=== PATIENT | female | born 1960 | race Caucasian/White ===

== ENCOUNTER 2016-06-01 12:45 | Emergency (ER) | payer OTHER ==
[~2016-06-01] VITALS: Ht 167.6 cm; Wt 65.0 kg
[2016-06-01 12:45] VITALS: Ht 167.6 cm; Wt 65.0 kg
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
--- NOTE | 2016-06-01 13:46 | RADRPT ---
PROCEDURE: CT cervical spine without contrast CLINICAL INDICATION: Neck pain. TECHNIQUE: CT scan of the cervical spine [facility] No IV contrast was administered. Coronal and sagittal reformatted images were obtained from th e axial source images. Images were reviewed on a high-resolution PACS workstation. One or more the f ollowing does reduction techniques were utilized: Automated exposure control, adjustment of the mA/ or kV according to patient's size, or use of iterative reconstruction technique. Exam CTDI = 22.18 m Gy and the DLP = 455.84 mGy-cm. COMPARISON: None available. FINDINGS: There is straightening of the alignment of the cervical spine with loss of the normal cervical lordo sis. There is 2 mm anterolisthesis of C3 on C4 and C4 on C5. No acute fracture or dislocation is s een. The vertebral body heights are preserved. No mass, hematoma, or other soft tissue abnormality is seen. There are mild to moderate degenerative changes of the cervical spine, manifested by osteophytosis, endplate sclerosis and disc height narrowing, mainly at C5-C6. Uncovertebral osteophytes contribute to moderate to marked right foraminal stenosis at C5-C6. IMPRESSION: 1. Straightening of normal cervical lordosis. 2 mm anterolisthesis of C3 on C4 and C4 on C5. 2. No acute cervical spine fracture. 3. Mild to moderate discogenic disease mainly at C5-C6. 4. Moderate to marked right foraminal stenosis at C5-C6. RPTAT: HH .Boubacar Nair MD, Date Time Electronically viewed and signed by .Boubacar Nair MD, MD on 06/01/2016 13:46 .N/
[2016-06-01] MEDS ORDERED: ONDANSETRON (ODT) 4 MG TAB ODT STA (13:52)
[2016-06-01] MEDS ORDERED: IBUP-1542 PO (13:53)
[2016-06-01] MEDS ORDERED: HYDROCODONE/APAP (10/325) TAB PO ONE (14:00)
[2016-06-01 14:15] VITALS: BP 128/78; PULSE 86; RESP 20; TEMP 98.3
== END 2016-06-01 14:19 | disposition home or self-care (01) ==
LOC: E/R 12:45
DX: S19.9XXA Unspecified injury of neck, initial encounter (principal); V49.50XA Passenger injured in collision with unspecified motor vehicles in traffic accident, initial encounter; Y92.410 Unspecified street and highway as the place of occurrence of the external cause
CPT/HCPCS: 72125